=== PATIENT | female | born 1965 | race Caucasian/White ===

== ENCOUNTER 2021-01-16 11:04 | Inpatient (IN) | payer BC ==
[~2021-01-16] VITALS: Ht 149.9 cm; Wt 56.2 kg
[~2021-01-16 11:04] MED LIST: CLINDAMYCIN HC150 MG PO; IBU600 MG PO; NEOSPORIN OINT30 GM TOP; NORCO 7.5-3251 EACH PO
[2021-01-16 12:00] LABS: HEMOGLOBIN 14.8 gm/dl (12.3-15.3); RED BLOOD COUNT 5.02 M/UL (4.00-5.10); WHITE BLOOD COUNT 14.6 K/UL (4.5-11.0)
[2021-01-16 12:33] LABS: BUN/CREATININE RATIO 32 (0-10)
[2021-01-16] MEDS ORDERED: PREVACID 24HR15 MG PO (15:06)
[2021-01-16 15:39] LABS: BUN/CREATININE RATIO 30 (0-10)
[2021-01-16 18:04] LABS: BUN/CREATININE RATIO 28 (0-10)
[2021-01-16 21:51] LABS: BUN/CREATININE RATIO 26 (0-10)
[2021-01-17 01:52] LABS: BUN/CREATININE RATIO 27 (0-10)
[2021-01-17 04:07] LABS: WHITE BLOOD COUNT 13.3 K/UL (4.5-11.0)
[2021-01-17 04:13] LABS: RED BLOOD COUNT 4.43 M/UL (4.00-5.10)
--- NOTE | 2021-01-17 04:30 | NUR ---
01/16 1930 pt arrived to ICU from ED. Insulin drip stopped on arrival dt critical K of 2.7, Dr Jurado notified and aware. orders received to stop bicarb drip and replace potassium, see orders for details. 0 Orders received to increase current IVF to 300ml/hr. 01/[address] Jurado aware of pt current lab values including K, bicarb, glucose, and gap. Orders received to restart insulin drip and change IVF. see orders for details.
[2021-01-17 04:37] LABS: BUN/CREATININE RATIO 23 (0-10)
[2021-01-17 07:58] LABS: BUN/CREATININE RATIO 22 (0-10)
[2021-01-17 12:35] LABS: BUN/CREATININE RATIO 21 (0-10)
[2021-01-17 14:50] LABS: ACINETOBACTER BAUMANNII Not Detected (Negative); CANDIDA ALBICANS Not Detected (Negative); CANDIDA KRUSEI Not Detected (Negative); CANDIDA TROPICALIS Not Detected (Negative); ENTEROCOCCUS Not Detected (Negative); ESCHERICHIA COLI Not Detected (Negative); HAEMOPHILUS INFLUENZAE Not Detected (Negative); KLEBSIELLA OXYTOCA Not Detected (Negative); KLEBSIELLA PNEUMONIAE Not Detected (Negative); KPC-CARBAPENEM-RESISTANCE GENE Not Detected (Negative); PROTEUS Not Detected (Negative); PSEUDOMONAS AERUGINOSA Not Detected (Negative); SERRATIA MARCESANS Not Detected (Negative); STAPHYLOCOCCUS Not Detected (Negative); STAPHYLOCOCCUS AUREUS Not Detected (Negative); STREP AGALACTIAE (GROUP B) Not Detected (Negative); STREP PYOGENES (GROUP A) Not Detected (Negative); mecA (METHICILLIN RESIST GENE Not Detected (Negative); vanA/B (VANCOMYCIN RESIST GENE Not Detected (Negative)
[2021-01-17 16:07] LABS: STREPTOCOCCUS DETECTED (Negative)
[2021-01-17 17:06] LABS: BUN/CREATININE RATIO 16 (0-10)
[2021-01-17 22:04] LABS: BUN/CREATININE RATIO 20 (0-10)
--- NOTE | 2021-01-17 23:46 | NUR ---
2345 report called to Isrrael [facility] on [facility]. all questions answered.
[2021-01-18 04:48] LABS: BUN/CREATININE RATIO 24 (0-10)
[2021-01-18 09:02] LABS: BUN/CREATININE RATIO 23 (0-10)
[2021-01-18 11:45] LABS: RED BLOOD COUNT 4.68 M/UL (4.00-5.10)
[2021-01-18 11:57] LABS: BUN/CREATININE RATIO 24 (0-10)
[2021-01-18 16:39] LABS: BUN/CREATININE RATIO 24 (0-10)
--- NOTE | 2021-01-18 19:01 | NUR ---
PATIENT HAD CENTRAL LINE PLACED BY DR. RADFORD. AWAITING CHEST XRAY TO SHOW THAT IT IS IN PLACE.
[2021-01-18 19:33] LABS: BUN/CREATININE RATIO 23 (0-10)
--- NOTE | 2021-01-18 22:16 | NUR ---
1927 XRAY CALLED TO VERIFY IJ LINE PLACEMENT. WILL RESUBMIT THE XRAY IT HADN'T BEEN READ YET.
--- NOTE | 2021-01-18 22:17 | NUR ---
1930 ATTEMPTED TO CALL XRAY WITH NO SUCCESS TO AQUIRE ABOUT RESULTS OF IJ LINE.
[2021-01-19 00:14] LABS: BUN/CREATININE RATIO 26 (0-10)
[2021-01-19 04:40] LABS: HEMOGLOBIN 11.9 gm/dl (12.3-15.3); RED BLOOD COUNT 4.08 M/UL (4.00-5.10); WHITE BLOOD COUNT 9.9 K/UL (4.5-11.0)
[2021-01-19 05:01] LABS: BUN/CREATININE RATIO 20 (0-10)
[2021-01-20 05:32] LABS: HEMOGLOBIN 12.6 gm/dl (12.3-15.3); RED BLOOD COUNT 4.3 M/UL (4.00-5.10)
[2021-01-20 05:41] LABS: WHITE BLOOD COUNT 13.5 K/UL (4.5-11.0)
[2021-01-20 06:16] LABS: BUN/CREATININE RATIO 40 (0-10)
--- NOTE | 2021-01-20 15:11 | NUR ---
PATIENTS ROOM AIR SATURATION IS 88%.
[2021-01-21 05:42] LABS: HEMOGLOBIN 11.7 gm/dl (12.3-15.3); RED BLOOD COUNT 4.05 M/UL (4.00-5.10)
[2021-01-21 05:43] LABS: WHITE BLOOD COUNT 9.1 K/UL (4.5-11.0)
[2021-01-21 06:13] LABS: BUN/CREATININE RATIO 22 (0-10)
[2021-01-22 06:36] LABS: HEMOGLOBIN 13.2 gm/dl (12.3-15.3)
[2021-01-22 06:38] LABS: RED BLOOD COUNT 4.51 M/UL (4.00-5.10); WHITE BLOOD COUNT 13.1 K/UL (4.5-11.0)
[2021-01-22 07:07] LABS: BUN/CREATININE RATIO 29 (0-10)
[2021-01-23 05:55] LABS: HEMOGLOBIN 12.1 gm/dl (12.3-15.3); RED BLOOD COUNT 4.13 M/UL (4.00-5.10)
[2021-01-23 06:29] LABS: BUN/CREATININE RATIO 53 (0-10)
[2021-01-23 18:21] LABS: BUN/CREATININE RATIO 58 (0-10)
[2021-01-24 07:12] LABS: HEMOGLOBIN 12.2 gm/dl (12.3-15.3); RED BLOOD COUNT 4.2 M/UL (4.00-5.10); WHITE BLOOD COUNT 13.3 K/UL (4.5-11.0)
[2021-01-24 07:36] LABS: BUN/CREATININE RATIO 48 (0-10)
[2021-01-25 04:37] LABS: HEMOGLOBIN 11.8 gm/dl (12.3-15.3); RED BLOOD COUNT 4.04 M/UL (4.00-5.10); WHITE BLOOD COUNT 14.6 K/UL (4.5-11.0)
[2021-01-25 04:56] LABS: BUN/CREATININE RATIO 50 (0-10)
[2021-01-25] MEDS ORDERED: ROBITUSSIN DM UD5 ML PO (10:03)
[2021-01-25] MEDS ORDERED: IPRAT-ALBUT 0.5-3 ML NEB (10:03)
[2021-01-25] MEDS ORDERED: INSULIN AS100 UNIT/3 SQ ×2 (10:08)
[2021-01-25] MEDS ORDERED: LANTUS SOL100 UNIT/1 SQ (10:08)
[2021-01-25] MEDS ORDERED: METER-CHECK1 EACH MC (10:10)
[2021-01-25] MEDS ORDERED: ELIQUIS 2.5 MG2.5 MG PO (16:19)
== END 2021-01-25 18:47 | disposition home health service (06) | DRG 871 ==
LOC: ER1 11:04 → PROG CARE 14:08 → M/S 14:08 → CCU 14:08 → CDU 14:08 → CCU 19:58 → PROG CARE 01-18 00:07 → M/S 01-20 17:07
PROVIDERS: Emergency Medicine; Internal Medicine; Physician Assistant; ADMIT Internal Medicine
PROC: 02HV33Z Insertion of Infusion Device into Superior Vena Cava, Percutaneous Approach (ICD-10-PCS; principal; 2021-01-16)
PROC: XW033E5 Introduction of Remdesivir Anti-infective into Peripheral Vein, Percutaneous Approach, New Technology Group 5 (ICD-10-PCS; 2021-01-16)
PROC: 8E0ZXY6 Isolation (ICD-10-PCS; 2021-01-16)
DX: A41.89 Other specified sepsis (principal); E11.10 Type 2 diabetes mellitus with ketoacidosis without coma; U07.1 COVID-19; J96.01 Acute respiratory failure with hypoxia; E11.00 Type 2 diabetes mellitus with hyperosmolarity without nonketotic hyperglycemic-hyperosmolar coma (NKHHC); J12.82 Pneumonia due to coronavirus disease 2019; J15.9 Unspecified bacterial pneumonia; E87.1 Hypo-osmolality and hyponatremia; E87.2 Acidosis; E86.0 Dehydration; R65.20 Severe sepsis without septic shock; E87.6 Hypokalemia; E11.65 Type 2 diabetes mellitus with hyperglycemia; E83.39 Other disorders of phosphorus metabolism; E88.09 Other disorders of plasma-protein metabolism, not elsewhere classified; Z79.4 Long term (current) use of insulin; Z91.14 Patient's other noncompliance with medication regimen; Z91.11 Patient's noncompliance with dietary regimen; Z90.49 Acquired absence of other specified parts of digestive tract; Z88.1 Allergy status to other antibiotic agents
CPT/HCPCS: 36415; 71045; 80048; 80053; 80076; 80202; 81001; 82009; 82550; 82553; 82728; 82800; 82803; 82962; 83036; 83605; 83615; 83690; 83735; 83874; 84100; 84484; 85025; 85027; 85379; 86140; 87040; 87077; 87150; 94640; 94664; 94760; 96374; 96375; 97116; 97116-GP-CQ; 97162; 97530-GP-CQ; 99285; C9113; J0456; J0696; J1100; J1650; J1940; J2405; J2550; J3370; J3475; J3480; J7030; J7070; J7120; U0002

== ENCOUNTER → 2021-02-15 | Outpatient (CLI) | payer BC ==
[~2021-02-15] MED LIST changes: +ELIQUIS 2.5 MG2.5 MG PO; +INSULIN AS100 UNIT/3 SQ; +IPRAT-ALBUT 0.5-3 ML NEB; +LANTUS SOL100 UNIT/1 SQ; +METER-CHECK1 EACH MC; +PREVACID 24HR15 MG PO; +ROBITUSSIN DM UD5 ML PO
== END ==
LOC: RAD 16:02
DX: R09.02 Hypoxemia (principal); R07.9 Chest pain, unspecified; I82.629 Acute embolism and thrombosis of deep veins of unspecified upper extremity
CPT/HCPCS: 71046; 93005

== ENCOUNTER → 2021-02-23 | Outpatient (CLI) | payer BC | LOC: US 02-22 13:30 | DX: R09.02 Hypoxemia (principal); R07.9 Chest pain, unspecified; I82.609 Acute embolism and thrombosis of unspecified veins of unspecified upper extremity | CPT/HCPCS: 93971 ==

== ENCOUNTER → 2021-02-27 | Outpatient (CLI) | payer BC | LOC: RAD 13:44 | DX: R06.02 Shortness of breath (principal); R91.8 Other nonspecific abnormal finding of lung field | CPT/HCPCS: 71046 ==

== ENCOUNTER 2021-03-15 10:26 | Emergency (ER) | payer BC ==
[2021-03-15 11:29] LABS: HEMOGLOBIN 13.7 gm/dl (12.3-15.3); RED BLOOD COUNT 4.69 M/UL (4.00-5.10); WHITE BLOOD COUNT 9.6 K/UL (4.5-11.0)
[2021-03-15 11:53] LABS: BUN/CREATININE RATIO 27 (0-10)
[2021-03-15] MEDS ORDERED: AZITHROMYCIN500 MG PO (16:28)
[2021-03-15] MEDS ORDERED: PROAIR HFA8.5 GM INH (16:28)
[2021-03-15] MEDS ORDERED: CEFDINIR300 MG PO (16:28)
== END 2021-03-15 16:47 | disposition home or self-care (01) ==
LOC: ER1 10:26
PROVIDERS: Physician Assistant
DX: J18.9 Pneumonia, unspecified organism (principal); R04.2 Hemoptysis; E11.9 Type 2 diabetes mellitus without complications; I10 Essential (primary) hypertension; K21.9 Gastro-esophageal reflux disease without esophagitis; Z90.49 Acquired absence of other specified parts of digestive tract; Z79.4 Long term (current) use of insulin; Z79.899 Other long term (current) drug therapy
CPT/HCPCS: 71045; 80053; 82550; 82553; 82962; 83874; 84484; 85025; 85379; 93005; 99284; Q9967

== ENCOUNTER 2021-05-08 07:01 | Emergency (ER) | payer BC ==
[~2021-05-08 07:01] MED LIST changes: +AZITHROMYCIN500 MG PO; +CEFDINIR300 MG PO; +PROAIR HFA8.5 GM INH
[2021-05-08 08:52] LABS: HEMOGLOBIN 12.8 gm/dl (12.3-15.3); RED BLOOD COUNT 4.39 M/UL (4.00-5.10); WHITE BLOOD COUNT 8.4 K/UL (4.5-11.0)
[2021-05-08 09:20] LABS: BUN/CREATININE RATIO 42 (0-10)
[2021-05-08] MEDS ORDERED: OMNICEF 300 MG300 MG PO (10:35)
[2021-05-08] MEDS ORDERED: ZITHROMAX250 MG PO (10:35)
== END 2021-05-08 11:14 | disposition home or self-care (01) ==
LOC: ER1 07:01
PROVIDERS: Student in an Organized Health Care Education/Training Program
DX: J18.9 Pneumonia, unspecified organism (principal); E11.9 Type 2 diabetes mellitus without complications; Z88.1 Allergy status to other antibiotic agents
CPT/HCPCS: 71045; 80053; 82550; 82553; 83874; 84484; 85025; 85379; 93005; 99284

== ENCOUNTER 2021-06-19 17:37 | Emergency (ER) | payer BC ==
[~2021-06-19 17:37] MED LIST changes: +OMNICEF 300 MG300 MG PO; +ZITHROMAX250 MG PO
[2021-06-19 18:53] LABS: HEMOGLOBIN 12.4 gm/dl (12.3-15.3); RED BLOOD COUNT 4.3 M/UL (4.00-5.10); WHITE BLOOD COUNT 10.9 K/UL (4.5-11.0)
[2021-06-19 19:32] LABS: BUN/CREATININE RATIO 44 (0-10)
[2021-06-19] MEDS ORDERED: LODINE CAP 300300 MG PO (20:09)
[2021-06-19] MEDS ORDERED: CLEOCIN HCL150 MG PO (20:09)
== END 2021-06-19 20:30 | disposition home or self-care (01) ==
LOC: ER1 17:37
PROVIDERS: Physician Assistant
DX: E11.622 Type 2 diabetes mellitus with other skin ulcer (principal); L97.319 Non-pressure chronic ulcer of right ankle with unspecified severity
CPT/HCPCS: 80048; 85025; 85652; 86140; 99283

== ENCOUNTER → 2021-07-20 | Outpatient (CLI) | payer BC ==
[~2021-07-20] MED LIST changes: +CLEOCIN HCL150 MG PO; +LODINE CAP 300300 MG PO
== END ==
LOC: RAD 15:25
DX: J06.9 Acute upper respiratory infection, unspecified (principal); R05.9 Cough, unspecified
CPT/HCPCS: 71046

== ENCOUNTER 2021-09-21 12:52 | Emergency (ER) | payer BC ==
[2021-09-21 14:11] LABS: HEMOGLOBIN 12.9 gm/dl (12.3-15.3); RED BLOOD COUNT 4.38 M/UL (4.00-5.10); WHITE BLOOD COUNT 9.1 K/UL (4.5-11.0)
[2021-09-21 14:35] LABS: BUN/CREATININE RATIO 38 (0-10)
[2021-09-21] MEDS ORDERED: PROTONIX40 MG PO (15:03)
== END 2021-09-21 15:03 | disposition home or self-care (01) ==
LOC: ER1 12:52
PROVIDERS: Physician Assistant
DX: R13.10 Dysphagia, unspecified (principal); R10.816 Epigastric abdominal tenderness; E11.9 Type 2 diabetes mellitus without complications
CPT/HCPCS: 80053; 81001; 82150; 83690; 85025; 99284